=== PATIENT | male | born 1950 | race Two or more races ===

== ENCOUNTER 2020-10-18 16:10 | Emergency (ER) | payer MEDICAID, OTHER ==
[~2020-10-18] VITALS: Ht 165.1 cm; Wt 86.5 kg
[2020-10-18 16:39] VITALS: BP 155/83
[2020-10-18] MEDS ORDERED: AMLO5TAB PO (21:44)
== END 2020-10-18 22:23 | disposition home or self-care (01) ==
LOC: ER 16:12
DX: R20.2 Paresthesia of skin (principal); I10 Essential (primary) hypertension; Z79.899 Other long term (current) drug therapy
CPT/HCPCS: 70450; 93005; 99284

== ENCOUNTER 2020-11-01 20:21 | Emergency (ER) | payer MEDICAID ==
[~2020-11-01] VITALS: Ht 170.2 cm; Wt 72.7 kg
[~2020-11-01 20:21] MED LIST: AMLO5TAB PO
[2020-11-01 20:55] VITALS: BP 161/92
--- NOTE | 2020-11-01 21:13 | NUR ---
Pt provided an address of his son, Shaun chester, and his personal address [address]. He did not initially want to give a phone number and stated to the campus recruiting coordinator that we can have the ambulance take him home. Pt explained that he would need to have someone take him home or we may be able to provide a taxi ride. Pt reported to Dr. toledo he is agreeable to having labs drawn. pt then requested a pen and paper and wrote a number [phone]. this is the cell phone of his son , rosi. I spoke with Rosi and he in on the way now and should be here by [phone]. He reports Pt did not tell him he was feeling bead and did not tell him he wanted to go to the hospital. labs drawn.
--- NOTE | 2020-11-01 21:33 | NUR ---
SON, ARISTIDES, ARRIVED AND DR. SAHA REPROTS HE WILL DC PATIENT. TORRES STATES PT HAS AN MRI SCHEDULED FOR THIS SUNDAY AND THAT PT WAS WORKED UP FOR A STROKE A FEW WEEKS AGO AND EVERYTHING CAME BACK OK. HE STATES THE PT WAS MISUNDERSTOOD BY THE BYSTANDERS THE PT WAS SHAKING AND Dt [facility] WAS CALLED AND HE WAS BROUGHT HERE BUT SON STATES THE PT DID NOT WANT TO COME HERE.
[2020-11-01 21:50] LABS: BASOPHILS # (AUTO) 0.1 X10'3 (0-0.2); BASOPHILS % (AUTO) 0.7 % (0-1); EOSINOPHILS # (AUTO) 0.2 X10'3 (0-0.9); EOSINOPHILS % (AUTO) 2.1 % (0-6); LYMPHOCYTES # (AUTO) 1.7 X10'3 (1.1-4.8); LYMPHOCYTES % (AUTO) 20.3 % (21-51); MEAN CORPUSCULAR HEMOGLOBIN 31.6 PG (27.0-31.0); MEAN CORPUSCULAR HGB CONC 34.7 g/dL (33.0-36.5); MEAN CORPUSCULAR VOLUME 91.2 FL (78-98); MEAN PLATELET VOLUME 9.6 FL (7.4-10.4); MONOCYTES # (AUTO) 0.7 X10'3 (0-0.9); MONOCYTES % (AUTO) 8.3 % (2-12); NEUTROPHILS # (AUTO) 5.6 X10'3 (1.8-7.7); NEUTROPHILS % (AUTO) 68.6 % (42-75); PLATELET COUNT 209 X10'3 (140-440); RED BLOOD COUNT 6.04 X10'6 (4.70-6.10); RED CELL DISTRIBUTION WIDTH 14.2 % (11.5-14.5); WHITE BLOOD COUNT 8.2 X10'3 (4.5-11.0)
[2020-11-01 21:55] LABS: ALANINE AMINOTRANSFERASE 26 U/L (12-78); ALBUMIN 3.9 G/DL (3.4-5.0); ALKALINE PHOSPHATASE 91 IU/L (46-116); ANION GAP 9 (8-16); ASPARTATE AMINO TRANSFERASE 21 U/L (10-37); BILIRUBIN,TOTAL 0.8 MG/DL (0.1-1.0); BLOOD UREA NITROGEN 10 MG/DL (7-18); BUN/CREATININE RATIO 8.7 (5.4-32.0); CALCIUM 8.6 MG/DL (8.5-10.1); CHLORIDE 107 MMOL/L (99-107); CREATININE 1.15 MG/DL (0.60-1.10); ETHANOL < 0.010 GM/DL (0.0-0.010); GLUCOSE 106 MG/DL (70-104); HEMOGLOBIN 19.1 g/dl (14.0-17.9); POTASSIUM 3.4 MMOL/L (3.5-5.1); SODIUM 145 MMOL/L (135-145); TOTAL CARBON DIOXIDE 29.1 MMOL/L (24-32); TOTAL PROTEIN 7.7 G/DL (6.4-8.2); eGFR 63 ML/MIN
== END 2020-11-01 21:37 | disposition home or self-care (01) ==
LOC: ER 20:22
DX: F10.129 Alcohol abuse with intoxication, unspecified (principal); M79.601 Pain in right arm; Y90.5 Blood alcohol level of 100-119 mg/100 ml; Z79.899 Other long term (current) drug therapy
CPT/HCPCS: 36415; 80053; 80320; 85025; 99283